=== PATIENT | male | born 1995 | race Caucasian/White ===

== ENCOUNTER 2018-06-12 18:08 | Emergency (ER) | payer OTHER ==
[2018-06-12] MEDS ORDERED: NS 0.9% 1000 ML* 1,000 ML IV ONE (18:14)
[2018-06-12] MEDS ORDERED: Metoclopramide IV* 5 MG/ML 2 ML VIAL IV ONE (18:15)
[2018-06-12 18:46] LABS: ABS Basophils 0 10^3/ul (0-0.2); ABS Eosinophils 0 10^3/ul (0-0.6); ABS Lymphocytes 0.9 10^3/ul (1.0-4.8); ABS Monocytes 0.7 10^3/ul (0-0.8); ABS Neutrophils 4.3 10^3/ul (1.5-7.7); ABS Nucleated RBC 0 10^3/ul; Eosinophil % 0 % (0-6); Hematocrit 42 % (42-52); Hemoglobin 14.6 g/dl (14.0-18.0); Lymphocyte % 15.5 % (25-47); Mean Corpuscular HGB Conc 35 g/dl (31-36); Mean Corpuscular Hemoglobin 29 pg (27-31); Mean Corpuscular Volume 83 fL (80-94); Nucleated Red Blood Cells % 0.6; Platelet Count 210 10^3/ul (150-450); Red Blood Count 5.05 10^6/ul (4.00-5.40); Red Cell Distribution Width 13 % (10.5-15); White Blood Count 5.9 10^3/ul (3.5-10.8)
[2018-06-12 19:00] LABS: EGFR Non-African American 81.9 (>60)
[2018-06-12 19:02] LABS: Urine Appearance Clear; Urine Blood 1+ (Negative); Urine Color Straw; Urine Ketones Negative (Negative); Urine Protein Negative (Negative); Urine Red Blood Cell Trace(0-2/hpf) (Absent); Urine Specific Gravity 1.002 (1.010-1.030); Urine Urobilinogen Negative (Negative); Urine White Blood Cell Trace(0-5/hpf) (Absent)
--- NOTE | 2018-06-12 19:14 | ED ---
Syncope/Near Syncope - HPI Summary HPI Summary: Patient complains of productive cough, fever up to 100.5, and 2 episodes of near syncope with associated lightheadedness, nausea, cold sweats today. Also complains of fever over the past weekend with lower back and leg joint pain, N/ V. Denies CP, SOB, headache, neck pain, sore throat, ear pain, nasal discharge , diarrhea, abdominal pain, change in urine, change in BM. No prior history of syncope or near-syncope. Medical history is GERD. Negative family cardiac history. Nonsmoker, occasional EtOH, denies illegal drug use. Patient is cross -country runner, denies any recent change in endurance or activity, denies CP or SOB with exertion. - History Of Current Complaint Chief Complaint: EDGeneral Time Seen by Provider: 06/12/18 18:18 Hx Obtained From: Patient Onset/Duration: Sudden Onset Timing: Seconds Context: Unwitnessed Activity At Onset: At Rest Associated Head Trauma: No Aggravating Factor(s): Nothing Alleviating Factor(s): Nothing Associated Signs And Symptoms: Lightheadedness - Allergies/Home Medications Allergies/Adverse Reactions: Allergies Allergy/AdvReac Type Severity Reaction Status Date / Time No Known Allergies Allergy Verified 06/12/18 18:16 PMH/Surg Hx/FS Hx/Imm Hx Endocrine/Hematology History: Denies: Hx Anticoagulant Therapy Cardiovascular History: Denies: Hx Cardiac Arrest History: Denies: Hx Dialysis Neurological History: Denies: Hx CVA Infectious Disease History: No Infectious Disease History: Denies: Traveled Outside the [place] in Last 30 Days - Social History Occupation: Student Alcohol Use: Weekly Alcohol Amount: 3 beverages maximum per outing Substance Use Type: Reports: None Smoking Status (MU): Never Smoked Tobacco Review of Systems Positive: Chills, Skin Diaphoresis Eyes: Negative ENT: Negative Cardiovascular: Negative Respiratory: Negative Positive: Nausea Genitourinary: Negative Musculoskeletal: Negative Skin: Negative Neurological: Other - near syncope Psychological: Normal All Other Systems Reviewed And Are Negative: Yes Physical Exam - Summary Physical Exam Summary: Neuro exam normal. Patient denies trauma from near syncope episodes. Physical exam unremarkable Triage Information Reviewed: Yes Vital Signs On Initial Exam: Initial Vitals Temp Pulse Resp BP Pulse Ox 98.3 F 86 19 152/70 98 06/12/18 18:10 06/12/18 18:10 06/12/18 18:10 06/12/18 18:10 06/12/18 18:10 Vital Signs Reviewed: Yes Appearance: Positive: Well-Appearing Skin: Positive: Warm Head/Face: Positive: Normal Head/Face Inspection Eyes: Positive: Normal ENT: Positive: Normal ENT inspection Neck: Positive: Supple Respiratory/Lung Sounds: Positive: Clear to Auscultation Cardiovascular: Positive: Normal Abdomen Description: Positive: Nontender Musculoskeletal: Positive: Normal Neurological: Positive: Normal Psychiatric: Positive: Normal AVPU Assessment: Alert - Deedee Coma Scale Best Eye Response: 4 - Spontaneous Best Motor Response: 6 - Obeys Commands Best Verbal Response: 5 - Oriented Coma Scale Total: 15 Diagnostics - Vital Signs Vital Signs Temp Pulse Resp BP Pulse Ox 06/12/18 18:10 98.3 F 86 19 152/70 98 - Laboratory Lab Results: Lab Results 06/12/18 06/12/18 06/12/18 Range/Units 18:23 18:29 18:29 WBC 5.9 (3.5-10.8) 10^3/ul RBC 5.05 (4.00-5.40) 10^6/ul Hgb 14.6 (14.0-18.0) g/dl Hct 42 (42-52) % MCV 83 (80-94) fL MCH 29 (27-31) pg MCHC 35 (31-36) g/dl RDW 13 (10.5-15) % Plt Count 210 (150-450) 10^3/ul MPV 8.0 (7.4-10.4) um3 Neut % (Auto) 72.7 (38-83) % Lymph % (Auto) 15.5 L (25-47) % [place] % (Auto) 11.5 H (0-7) % Eos % (Auto) 0 (0-6) % Baso % (Auto) 0.3 (0-2) % Absolute Neuts (auto) 4.3 (1.5-7.7) 10^3/ul Absolute Lymphs (auto) 0.9 L (1.0-4.8) 10^3/ul Absolute Monos (auto) 0.7 (0-0.8) 10^3/ul Absolute Eos (auto) 0 (0-0.6) 10^3/ul Absolute Basos (auto) 0 (0-0.2) 10^3/ul Absolute Nucleated RBC 0 10^3/ul Nucleated RBC % 0.6 Sodium 130 L (135-145) mmol/L Potassium 3.6 (3.5-5.0) mmol/L Chloride 91 L (101-111) mmol/L Carbon Dioxide 29 (22-32) mmol/L Anion Gap 10 (2-11) mmol/L BUN 11 (6-24) mg/dL Creatinine 1.13 (0.67-1.17) mg/dL Est GFR ( Amer) 99.1 (>60) Est GFR (Non-Af Amer) 81.9 (>60) BUN/Creatinine Ratio 9.7 (8-20) Glucose 128 H (70-100) mg/dL Lactic Acid (0.5-2.0) mmol/L Calcium 9.6 (8.6-10.3) mg/dL Total Bilirubin 1.10 H (0.2-1.0) mg/dL AST 25 (13-39) U/L ALT 17 (7-52) U/L Alkaline Phosphatase 46 (34-104) U/L Troponin I 0.00 (<0.04) ng/mL Total Protein 7.8 (6.4-8.9) g/dL Albumin 4.8 (3.2-5.2) g/dL Globulin 3.0 (2-4) g/dL Albumin/Globulin Ratio 1.6 (1-3) Urine Color Urine Appearance Urine pH (5-9) Ur Specific [place] (1.010-1.030) Urine Protein (Negative) Urine Ketones (Negative) Urine Blood (Negative) Urine Nitrate (Negative) Urine Bilirubin (Negative) Urine Urobilinogen (Negative) Ur Leukocyte Esterase (Negative) Urine WBC (Auto) (Absent) Urine RBC (Auto) (Absent) Urine Bacteria (Absent) Urine Glucose (Negative) Monoscreen Pending Influenza A (Rapid) (Negative) Influenza B (Rapid) (Negative) Group A Strep Rapid Negative (Negative) 06/12/18 06/12/18 06/12/18 Range/Units 18:29 18:36 18:49 WBC (3.5-10.8) 10^3/ul RBC (4.00-5.40) 10^6/ul Hgb (14.0-18.0) g/dl Hct (42-52) % MCV (80-94) fL MCH (27-31) pg MCHC (31-36) g/dl RDW (10.5-15) % Plt Count (150-450) 10^3/ul MPV (7.4-10.4) um3 Neut % (Auto) (38-83) % Lymph % (Auto) (25-47) % [place] % (Auto) (0-7) % Eos % (Auto) (0-6) % Baso % (Auto) (0-2) % Absolute Neuts (auto) (1.5-7.7) 10^3/ul Absolute Lymphs (auto) (1.0-4.8) 10^3/ul Absolute Monos (auto) (0-0.8) 10^3/ul Absolute Eos (auto) (0-0.6) 10^3/ul Absolute Basos (auto) (0-0.2) 10^3/ul Absolute Nucleated RBC 10^3/ul Nucleated RBC % Sodium (135-145) mmol/L Potassium (3.5-5.0) mmol/L Chloride (101-111) mmol/L Carbon Dioxide (22-32) mmol/L Anion Gap (2-11) mmol/L BUN (6-24) mg/dL Creatinine (0.67-1.17) mg/dL Est GFR ( Amer) (>60) Est GFR (Non-Af Amer) (>60) BUN/Creatinine Ratio (8-20) Glucose (70-100) mg/dL Lactic Acid 1.1 (0.5-2.0) mmol/L Calcium (8.6-10.3) mg/dL Total Bilirubin (0.2-1.0) mg/dL AST (13-39) U/L ALT (7-52) U/L Alkaline Phosphatase (34-104) U/L Troponin I (<0.04) ng/mL Total Protein (6.4-8.9) g/dL Albumin (3.2-5.2) g/dL Globulin (2-4) g/dL Albumin/Globulin Ratio (1-3) Urine Color Straw Urine Appearance Clear Urine pH 6.0 (5-9) Ur Specific [place] 1.002 L (1.010-1.030) Urine Protein Negative (Negative) Urine Ketones Negative (Negative) Urine Blood 1+ A (Negative) Urine Nitrate Negative (Negative) Urine Bilirubin Negative (Negative) Urine Urobilinogen Negative (Negative) Ur Leukocyte Esterase Negative (Negative) Urine WBC (Auto) Trace(0-5/hpf) (Absent) Urine RBC (Auto) Trace(0-2/hpf) (Absent) Urine Bacteria Absent (Absent) Urine Glucose Negative (Negative) Monoscreen Influenza A (Rapid) Negative (Negative) Influenza B (Rapid) Negative (Negative) Group A Strep Rapid (Negative) Result Diagrams: 06/12/18 18:29 06/12/18 18:29 Lab Statement: Any lab studies that have been ordered have been reviewed, and results considered in the medical decision making process. - Radiology cxr Xray Interpretation: Positive (See Comments) - Left lobe pneumonia Radiology Interpretation Completed By: ED Physician - EKG 1 Cardiac Rate: NL EKG Rhythm: Sinus Rhythm ST Segment: Non-Specific - Flattened T waves diffusely, inverted T-wave V4. EKG Interpretation: flattened T waves diffusely. T-wave inversion V4. - Additional Comments Diagnostic Additional Comments: Negative for Brugada syndrome, hypertrophic cardiomyopathy. Course/Dx Course Of Treatment: Patient complains of productive cough, fever up to 100.5, and 2 episodes of near syncope with associated lightheadedness, nausea, cold sweats today. Also complains of fever over the past weekend with lower back and leg joint pain, N/V. Denies CP, SOB, headache, neck pain, sore throat, ear pain, nasal discharge, diarrhea, abdominal pain, change in urine, change in BM. No prior history of syncope or near-syncope. Medical history is GERD. Negative family cardiac history. Nonsmoker, occasional EtOH, denies illegal drug use. Patient is cross-country runner, denies any recent change in endurance or activity, denies CP or SOB with exertion. Physical exam:Neuro exam normal. Patient denies trauma from near syncope episodes. Physical exam unremarkable. EKG negative for Brugada, LVH. T wave inversion in V4. Minimal T waves in lead 1, 2, 3, aVF, V5 and V6. Early Repol in V2, V3. Labs unremarkable. Vital signs within normal limits. Chest x-ray positive for pneumonia. Discussed patient with Dr. Zhang who recommended discharge home with Levaquin 750 mg by mouth 7 days and Follow up with cardiology for abnormal EKG. - Diagnoses Provider Diagnoses: Pneumonia Discharge - Sign-Out/Discharge Documenting (check all that apply): Patient Departure - Discharge Plan Condition: Stable Disposition: HOME Prescriptions: Levofloxacin TAB* [Levaquin TAB*] 750 mg PO DAILY 7 Days #7 tab Patient Education Materials: Pneumonia (ED) Referrals: No Primary Care Phys,NOPCP [Primary Care Provider] - Additional Instructions: Follow up with cardiology [facility] for further evaluation with a Holter monitor. Take antibiotics as directed. Return to the ED for any new or worsening symptoms - Billing Disposition and Condition Condition: STABLE Disposition: Home
[2018-06-12] MEDS ORDERED: Levofloxacin TAB* 250 MG PO ONE (21:07)
[2018-06-12 22:42] VITALS: BP 152/60
--- NOTE | 2018-06-13 10:58 | RAD ---
HISTORY: cough COMPARISONS: None VIEWS: 4: Frontal dual-energy and lateral views of the chest. FINDINGS: CARDIOMEDIASTINAL SILHOUETTE: The cardiomediastinal silhouette is normal. PABLITO: The pablito are normal. PLEURA: The costophrenic angles are sharp. No pleural abnormalities are noted. LUNG PARENCHYMA: There is perihilar confluent alveolar opacification on the frontal view localizing to the superior segment of the left lower lobe. ABDOMEN: The upper abdomen is clear. There is no subphrenic gas. BONES AND SOFT TISSUES: No bone or soft tissue abnormalities are noted. OTHER: None. IMPRESSION: LEFT PERIHILAR CONSOLIDATION. RECOMMEND FOLLOW-UP UNTIL RESOLUTION TO EXCLUDE UNDERLYING PULMONARY PARENCHYMAL PATHOLOGY. R0
== END 2018-06-12 21:26 | disposition home or self-care (01) ==
LOC: ED 18:08
DX: J18.9 Pneumonia, unspecified organism (principal); R42 Dizziness and giddiness
CPT/HCPCS: 36415; 71046; 80053; 81003; 81015; 83605; 84484; 85025; 86308; 87040; 87086; 87651; 93005; 96374; 99282; A9270-GY; J2765